=== PATIENT | male | born 1975 | race American Indian/Alaskan Native ===

== ENCOUNTER 2022-01-08 06:36 | Day surgery (SDC) | payer BC, OTHER ==
[2022-01-08] MEDS ORDERED: ASPIRIN EC 325 MG TAB PO NR (07:05)
[2022-01-08 07:27] LABS: Red Blood Count 4.65 M/mm3 (3.65-5.03); Red Cell Distribution Width 14.4 % (13.2-15.2)
[2022-01-08 07:38] LABS: BUN/Creatinine Ratio 8; Blood Urea Nitrogen 9 mg/dL (9-20); Calcium 9.4 mg/dL (8.4-10.2); Hemolysis Index 7
[2022-01-08 07:45] LABS: INR 0.85 (0.87-1.13)
[2022-01-08 07:53] LABS: Eosinophils % (Auto) 2.8 % (0.0-4.3); Hematocrit 42.1 % (35.5-45.6); Hemoglobin 13.9 gm/dl (11.8-15.2); Mean Corpuscular HGB Conc 33 % (32-34); Mean Corpuscular Volume 91 fl (84-94); Monocytes # (Auto) 0.4 K/mm3 (0.0-0.8); Monocytes % (Auto) 9.9 % (0.0-7.3); Platelet Count 158 K/mm3 (140-440)
[2022-01-08 08:02] LABS: Eosinophils # (Auto) 0.1 K/mm3 (0.0-0.4); Lymphocytes # (Auto) 1.4 K/mm3 (1.2-5.4); Lymphocytes % (Auto) 38.6 % (13.4-35.0)
[2022-01-08 08:03] LABS: Basophils % (Auto) 0.2 % (0.0-1.8)
[2022-01-08] MEDS ORDERED: VERAPAMIL 5 MG/2 ML INJ ONE (08:22)
[2022-01-08] MEDS ORDERED: HEPARIN 10,000 UNITS/10 ML VIAL ONE ×2 (08:22→09:23)
[2022-01-08] MEDS ORDERED: NITROGLYCERIN SYRINGE 0 ML ONE (08:23)
[2022-01-08] MEDS ORDERED: LIDOCAINE (1%) 10 MG/1 ML VIAL 20 ML MDV ONE (08:23)
[2022-01-08] MEDS: SODIUM CHLORIDE 0.9% 500 ML 500 ML IV SCH ×2 (08:34→09:00)
[2022-01-08] MEDS: MIDAZOLAM 2 MG/2 ML INJ ONE ×2 (09:09→09:25)
[2022-01-08] MEDS: fentaNYL 100 MCG/2 ML INJ ONE ×2 (09:10→09:25)
[2022-01-08] MEDS: HEPARIN/NS 5000 UNIT/500ML 1,000 ML IR ONE ×2 (09:10→10:09)
[2022-01-08] MEDS ORDERED: SODIUM CHLORIDE 0.9% 500 ML 500 ML ONE (09:35)
[2022-01-08] MEDS ORDERED: HEPARIN/NS 5000 UNIT/500ML 500 ML IR ONE (09:37)
[2022-01-08] MEDS ORDERED: ALUM-MAG HYDROXIDE-SIMETHICONE 200-200-20MG/5ML ORAL LIQD 30 ML ONE (09:48)
[2022-01-08] MEDS ORDERED: TICAGRELOR 90 MG TAB ONE (09:48)
--- NOTE | 2022-01-08 11:39 | Cardiac Catherization Report ---
DATE OF SERVICE: 01/08/2022 CARDIAC CATHETERIZATION AND CORONARY INTERVENTION REPORT INDICATIONS: The patient fraction is 46-year-old -Swiss gentleman with complaints of shortness of breath of few months' duration, getting worse with exertion. Was noted to have abnormal stress nuclear imaging consistent with ischemia in all 3 coronary vessel territories. Hence, scheduled for cardiac catheterization for definitive diagnosis and treatment. The patient is aware of the procedure, potential complications, and alternatives of therapy available. The patient is agreeable to proceed with coronary angiography and if indicated coronary intervention. DESCRIPTION OF PROCEDURE: The patient was brought to the catheterization laboratory in a fasting condition. The patient was prepared in standard fashion. The patient was evaluated for moderate sedation and received IV Versed and fentanyl starting at 9:09 a.m. Subsequently, local anesthesia was given in the right radial artery and radial access was obtained using 21-gauge arterial puncture needle. A 5-[place]izen [place] slender sheath was introduced. A 6-Citizen [place] multipurpose catheter was used to obtain the angiograms of the right coronary artery and left ventriculogram done in [place] and [place] projection. Subsequently, 6-[place]izen [place] JL3.5 diagnostic catheter was used to obtain the angiograms of the left coronary artery. Following findings were noted. HEMODYNAMICS: 1. Aortic pressure 125/79. Left ventricular pressure 122/23. No gradient across the aortic valve. Estimated ejection fraction 55%. 2. Left ventriculogram done in [place] projection showed normal-sized left ventricle with normal contractility. End-diastolic and end-systolic volumes were normal. Mitral regurgitation could not be evaluated because of limited amount of dye injected. End-diastolic pressure was noted to be 23 mmHg. 3. Right coronary artery dominant vessel arises normally from right coronary cusp. This shows very severe disease in the proximal part approaching more than 95% in addition to moderate disease in the mid to distal part. Mild diffuse disease noted elsewhere. On LCA injection, very faint collaterals were noted to the very distal RCA. 4. Left coronary artery arises normally from left coronary cusp. The left main is short without any significant disease. LAD curves around the apex. LAD and its branches show only very mild irregularities. Circumflex artery shows severe long diseased segment starting from proximal to distal part. This is a long lesion approaching 80%-90% in certain areas. SHAHRZAD 3 flow is noted. Collaterals are noted to the very distal RCA on LCA injection. FINAL IMPRESSION: Very severe proximal right coronary artery disease and moderate mid disease in addition to diffuse disease elsewhere and also severe disease in the circumflex artery, very long lesion. Distal vessel without significant disease. Left anterior descending without significant disease. Considering the above angiographic picture, with severity and size of the RCA, it was felt the patient would benefit from proceeding with intervention and procedure was converted to interventional procedure. CORONARY INTERVENTION OF THE RCA: The patient had indwelling 5-[place]izen [place] slender sheath in the right radial artery. The patient was given IV heparin as anticoagulant. Subsequently, JR4 guiding catheter was used to engage the right coronary artery. A 0.014 inch [place] XT guidewire was advanced into the distal RCA without difficulty. The lesion in the proximal RCA was dilated with 3.0 x 12 mm balloon with good result. However, significant residual stenosis noted. Intravascular ultrasound was prepared in a standard fashion and intravascular ultrasound of the right coronary artery was performed without difficulty. This showed the proximal vessel size to be 4.0 with mid vessel around 3.5 mm in size. Mid RCA also showed significant disease approaching 2 mm in diameter. Severe disease noted in the proximal RCA and also in addition diffuse disease was noted in between, which is moderate. A 3.0 x 12 mm Resolute [place] stent was advanced into the mid RCA and inflated to nominal pressure of 12 atmospheres with very good result. Subsequently, 4.0 x 18 mm Resolute [place] stent was advanced into the proximal RCA and dilated up to 12 atmospheres with very good result. Intravascular ultrasound postprocedure showed well opposed stents in both places. No dissection areas noted. Angiograms did not reveal any evidence of distal embolization. The patient tolerated the procedure well. No untoward complications were noted. SHAHRZAD 3 flow was noted pre and postprocedure. Final angiogram showed no complications with both lesions showing no evidence of proximal or distal dissection and step up was noted in both the lesions. FINAL IMPRESSION: Uncomplicated intravascular ultrasound guided intervention of the proximal right coronary artery and mid right coronary artery, with good result and no complications. The patient tolerated the procedure well. Therapeutic ACT was noted post procedure. The patient was given 180 mg of Brilinta, will be continued on 81 mg of aspirin. Will be given high intensity statin. The patient will be observed for the next 4-6 hours and if unremarkable, we will discharge him and consider staged intervention of the circumflex artery. Findings were explained to the patient and his . They understand. TID: [id number] RECEIPT: [id number] SOPHIE/LING SANDERSON
[2022-01-08] MEDS ORDERED: HYDROcodone/ACETAMINOPHEN 5-325 MG TAB PO PRN (11:58)
[2022-01-08] MEDS ORDERED: traMADol 50 MG TAB PO PRN (11:58)
--- NOTE | 2022-01-08 12:05 | Short Stay Summary ---
Short Stay Documentation Date of service: 01/08/22 - History H&P: obtained from office - Allergies and Medications Current Medications: Allergies No Known Allergies Allergy (Verified 01/08/22 07:03) Home Medications Medication Instructions Recorded Confirmed Last Taken Type Albuterol Sulfate [Proair 90 mcg IH Q6HR 01/08/22 01/08/22 01/07/22 History Respiclick] 2 puffs Aspirin [Aspirin BABY CHEW TAB] 81 mg PO QDAY 01/08/22 01/08/22 01/07/22 History 1 tab AtorvaSTATin [Lipitor] 20 mg PO DAILY 01/08/22 01/08/22 01/07/22 History 1 tab Cholecalciferol (Vitamin D3) 2,000 unit PO QDAY 01/08/22 01/08/22 01/07/22 History [Vitamin D3 2,000 UNIT CAP] 1 tab Colchicine [Colcrys] 0.6 mg PO DAILY 01/08/22 01/08/22 07/26/21 History 1 tab Cyclobenzaprine HCl [Flexeril 5 MG 5 mg PO BID 01/08/22 01/08/22 05/26/21 History TAB] 1 tab Esomeprazole Magnesium [Nexium 20 mg PO DAILY 01/08/22 01/08/22 01/07/22 History 24Hr] 1 tab Ticagrelor [Brilinta] 90 mg PO BID 30 Days #60 tablet 01/08/22 Unknown Rx Zolpidem (Nf) [Ambien (Nf)] 10 mg PO QHS 01/08/22 01/08/22 01/07/22 History 1 tab allopurinoL [Zyloprim] 100 mg PO QDAY 01/08/22 01/08/22 07/26/21 History 1 tab amLODIPine [Norvasc] 10 mg PO DAILY 01/08/22 01/08/22 01/07/22 History 1 tab lisinopriL [Lisinopril] 20 mg PO DAILY 01/08/22 01/08/22 01/07/22 History 1 tab traZODone [Desyrel] 100 mg PO QHS 01/08/22 01/08/22 01/07/22 History 1 tab Active Medications Hydrocodone Bitart/Acetaminophen (Hydrocodone/Acetaminophen 5-325 Mg Tab) 1 each PO Q4H PRN PRN Reason: Pain, Moderate (4-6) Sodium Chloride (Nacl 0.9% 500 Ml) 500 mls @ 50 mls/hr IV DIRECT GERALD Stop: 01/08/22 17:59 Last Admin: 01/08/22 09:00 Dose: 50 mls/hr Tramadol HCl (Tramadol 50 Mg Tab) 50 mg PO Q4H PRN PRN Reason: Pain, Mild (1-3) - Physical exam Integumentary: other (Dressing clean dry and intact with no bleeding. Patient had small hematoma at cardiac cath site that was expressed however patient is not in pain has normal cap refill and normal sensation in hand) - Brief post op/procedure progress note Date of procedure: 01/08/22 Pre-op diagnosis: Abnormal stress test Post-op diagnosis: other (Coronary artery disease) Anesthesia: local Estimated blood loss: minimal - Hospital course Hospital course: Patient presented for cardiac cath today. Patient found to have severe proximal RCA disease and moderate mid disease. In addition to diffuse disease elsewhere and also severe disease in circumflex artery. Patient underwent PCI of RCA. Patient tolerated procedure well. Patient to be discharged home with prescription for Brilinta and metoprolol. Patient will continue aspirin and statin therapy. Patient will be rescheduled for outpatient staged PCI. Discussed plan of care with patient. - Disposition Condition at discharge: Good Disposition: 01 HOME / SELF CARE / HOMELESS - Discharge Diagnoses (1) Coronary artery disease Status: Acute (2) Chronic kidney disease Status: Acute (3) Hypertension Status: Acute (4) Hyperlipidemia Status: Acute Short Stay Discharge Plan Activity: advance as tolerated Diet: low fat, low cholesterol, low salt Wound: keep clean and dry, per your surgeon's advice Follow up with: DIEGO MENDEZ MD [Primary Care Provider] - 7 Days MARC HENRY MD [Staff Physician] - 7 Days Forms: CardCat PCI D/C Instructions Prescriptions: Ticagrelor [Brilinta] 90 mg PO BID 30 Days #60 tablet AtorvaSTATin [Lipitor] 40 mg PO DAILY 30 Days #30 tab Metoprolol [Lopressor TAB] 12.5 mg PO BID 30 Days #60 tablet
[2022-01-08 16:05] VITALS: BP 136/93
--- NOTE | 2022-01-09 12:13 | Electrocardiograph Report ---
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
--- NOTE | 2022-01-09 12:18 | Electrocardiograph Report ---
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
== END 2022-01-08 17:00 | disposition home or self-care (01) ==
LOC: CATHLABREC 06:36
PROVIDERS: ATTEND Internal Medicine
DX: R06.02 Shortness of breath (principal); R94.39 Abnormal result of other cardiovascular function study; I25.10 Atherosclerotic heart disease of native coronary artery without angina pectoris; I12.9 Hypertensive chronic kidney disease with stage 1 through stage 4 chronic kidney disease, or unspecified chronic kidney disease; N18.9 Chronic kidney disease, unspecified; E78.5 Hyperlipidemia, unspecified; G47.33 Obstructive sleep apnea (adult) (pediatric); F41.9 Anxiety disorder, unspecified; R07.89 Other chest pain; N52.8 Other male erectile dysfunction; Z79.899 Other long term (current) drug therapy; Z79.82 Long term (current) use of aspirin; Z98.890 Other specified postprocedural states; Z83.3 Family history of diabetes mellitus; Z82.49 Family history of ischemic heart disease and other diseases of the circulatory system
CPT/HCPCS: 36415; 80048; 85025; 85610; 85730; 92978; 93005; 93458; 99156; 99157; C1725; C1753; C1769; C1874; C1887; C1894; C9600; J1644; J2250; J3010; J7040; 92928; J1815; Q9967

== ENCOUNTER 2022-01-10 06:46 | Day surgery (SDC) | payer BC, OTHER ==
[2022-01-10 07:44] LABS: Basophils % (Auto) 0.2 % (0.0-1.8); Eosinophils # (Auto) 0.1 K/mm3 (0.0-0.4); Eosinophils % (Auto) 1.9 % (0.0-4.3); Hematocrit 43.4 % (35.5-45.6); Hemoglobin 14.1 gm/dl (11.8-15.2); Lymphocytes # (Auto) 1.1 K/mm3 (1.2-5.4); Lymphocytes % (Auto) 22.3 % (13.4-35.0); Mean Corpuscular HGB Conc 33 % (32-34); Mean Corpuscular Volume 92 fl (84-94); Monocytes # (Auto) 0.5 K/mm3 (0.0-0.8); Monocytes % (Auto) 9.9 % (0.0-7.3); Platelet Count 165 K/mm3 (140-440); Red Blood Count 4.72 M/mm3 (3.65-5.03); Red Cell Distribution Width 14.4 % (13.2-15.2)
[2022-01-10 07:54] LABS: BUN/Creatinine Ratio 8; Blood Urea Nitrogen 9 mg/dL (9-20); Calcium 9.7 mg/dL (8.4-10.2); Hemolysis Index 5
[2022-01-10 07:56] LABS: INR 0.84 (0.87-1.13)
[2022-01-10] MEDS ORDERED: HEPARIN/NS 5000 UNIT/500ML 1,000 ML IR ONE (08:01)
[2022-01-10] MEDS ORDERED: LIDOCAINE (1%) 10 MG/1 ML VIAL 20 ML MDV ONE (08:02)
[2022-01-10] MEDS ORDERED: NITROGLYCERIN SYRINGE 3 ML ONE (08:02)
[2022-01-10] MEDS ORDERED: VERAPAMIL 5 MG/2 ML INJ ONE (08:02)
[2022-01-10] MEDS: SODIUM CHLORIDE 0.9% 500 ML 500 ML IV SCH ×2 (08:16→09:00)
[2022-01-10] MEDS ORDERED: HEPARIN/NS 5000 UNIT/500ML 500 ML IR ONE (08:38)
[2022-01-10] MEDS: MIDAZOLAM 2 MG/2 ML INJ ONE ×2 (09:05→09:16)
[2022-01-10] MEDS: fentaNYL 100 MCG/2 ML INJ ONE ×2 (09:06→09:15)
[2022-01-10] MEDS: HEPARIN 10,000 UNITS/10 ML VIAL ONE ×2 (09:14→09:17)
[2022-01-10] MEDS ORDERED: HYDROcodone/ACETAMINOPHEN 5-325 MG TAB PO SCH (10:30)
--- NOTE | 2022-01-10 10:30 | Cardiac Catherization Report ---
DATE OF SERVICE: 01/10/2022 INDICATIONS: The patient is a 46-year-old gentleman with history of hypertension, diabetes mellitus, obstructive sleep apnea, was noted to have grossly abnormal nuclear imaging and subsequently underwent coronary angiography, which showed severe disease in the RCA along with circumflex artery. He underwent intervention of the RCA a few days ago and presently brought back for staged intervention of the long lesion in the circumflex artery. The patient is aware of the procedure, potential complications, and alternatives of therapy available. The patient is already taking aspirin 81 mg and Brilinta in addition to atorvastatin. DESCRIPTION OF PROCEDURE: Informed consent was obtained and the patient was brought to the catheterization laboratory in a fasting condition. patient was evaluated for moderate sedation and was felt to be an appropriate candidate for moderate sedation. Received IV Versed and fentanyl starting at 9:12 a.m. Continuously monitored with pulse oximetry, hemodynamic and EKG monitoring. The patient was prepared in a standard fashion, sterile drapes were applied, local anesthesia was given in the right wrist area followed by accessing the right radial artery using 21-gauge arterial puncture needle. A 5-[place] slender sheath was used. The patient received 5 mg of intra-arterial verapamil and 3000 units of intravenous heparin. Using diagnostic right coronary JR4 catheter, angiograms of the right coronary artery were obtained and it showed widely patent stents in the proximal and mid RCA. Subsequently, patient was given extra dose of IV heparin 70 units per kg. A 6 [place] EBU 3.5 guiding catheter was advanced and engaged the left coronary artery. A 0.014 inch [place] XT guidewire was advanced into the distal circumflex artery without difficulty. The lesion was dilated with 2.5 x 15 mm balloon on multiple times with a good result. An intravascular ultrasound was set up and subsequently diameter of the distal vessel and a diseased vessel in the proximal part were measured. Distal vessel size is 2.75-2.9 mm in diameter. The proximal vessel is a 3.5-4 mm in diameter. Considering this, a 2.75 x 26 mm [place] stent was advanced into the distal part of the circumflex artery, which includes extending into the mid part, dilated up to 14 atmospheres with good result. Subsequently, 3.0 x 26 mm Resolute [place] stent was inserted in the mid to proximal part and inflated up to 16 atmospheres with good result. Final IVUS showed very good apposition throughout the stented area. No areas of dissection or thrombus noted. The patient tolerated the procedure well with no complaints of chest pain or EKG changes. Hemodynamically stable. The patient was monitored throughout the procedure and moderate sedation monitoring ended at 10:01 a.m. The patient was hemodynamically stable at the end of procedure, the patient is communicating normally, breathing normally with no focal deficits. Radial band will be applied for hemostasis. The patient's ACT post-procedure was 276 seconds. The patient is already on Brilinta and he will be continued on the same. FINAL IMPRESSION: Successful, uncomplicated IVUS guided drug-eluting stent placement of the proximal to distal circumflex artery with patent stents in the proximal and mid RCA. No complications noted. TID: [id number] RECEIPT: [id number] SOPHIE/BIBI SANDERSON
[2022-01-10] MEDS ORDERED: traMADol 50 MG TAB PO PRN (11:25)
[2022-01-10] MEDS ORDERED: HYDROcodone/ACETAMINOPHEN 5-325 MG TAB PO PRN (11:25)
--- NOTE | 2022-01-10 11:48 | Electrocardiograph Report ---
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
--- NOTE | 2022-01-10 14:39 | Short Stay Summary ---
Short Stay Documentation Date of service: 01/10/22 - History H&P: obtained from office - Allergies and Medications Current Medications: Allergies No Known Allergies Allergy (Verified 01/08/22 07:03) Home Medications Medication Instructions Recorded Confirmed Last Taken Type Albuterol Sulfate [Proair 90 mcg IH Q6HR 01/08/22 01/10/22 01/07/22 History Respiclick] 2 puffs Aspirin [Aspirin BABY CHEW TAB] 81 mg PO QDAY 01/08/22 01/10/22 01/09/22 History 81 mg AtorvaSTATin [Lipitor] 40 mg PO DAILY 30 Days #30 tab 01/08/22 01/10/22 01/09/22 Rx 40 mg Cholecalciferol (Vitamin D3) 2,000 unit PO QDAY 01/08/22 01/10/22 01/09/22 History [Vitamin D3 2,000 UNIT CAP] 2000 units Colchicine [Colcrys] 0.6 mg PO DAILY 01/08/22 01/10/22 12/03/21 History 0.6mg Cyclobenzaprine HCl [Flexeril 5 MG 5 mg PO BID 01/08/22 01/10/22 08/27/21 History TAB] 5 mg Esomeprazole Magnesium [Nexium 20 mg PO DAILY 01/08/22 01/10/22 01/07/22 History 24Hr] 1 tab Metoprolol [Lopressor TAB] 12.5 mg PO BID 30 Days #60 tablet 01/08/22 01/10/22 01/09/22 Rx 12.5mg Ticagrelor [Brilinta] 90 mg PO BID 30 Days #60 tablet 01/08/22 01/10/22 01/10/22 07:44 Rx 90 mg Zolpidem (Nf) [Ambien (Nf)] 10 mg PO QHS 01/08/22 01/10/22 01/09/22 History 10 mg allopurinoL [Zyloprim] 100 mg PO PRN PRN 01/08/22 01/10/22 11/24/21 History 100 mg amLODIPine 10 mg PO DAILY 01/08/22 01/10/22 01/09/22 History 10 mg lisinopriL [Lisinopril] 20 mg PO DAILY 01/08/22 01/10/22 01/09/22 History mg traZODone [Desyrel] 100 mg PO QHS 01/08/22 01/10/22 01/09/22 History 100 mg Active Medications Hydrocodone Bitart/Acetaminophen (Hydrocodone/Acetaminophen 5-325 Mg Tab) 1 each PO ONCE@1030 GERALD Stop: 01/10/22 15:00 Last Admin: 01/10/22 10:30 Dose: 1 each Hydrocodone Bitart/Acetaminophen (Hydrocodone/Acetaminophen 5-325 Mg Tab) 1 each PO Q4H PRN PRN Reason: Pain, Moderate (4-6) Sodium Chloride (Nacl 0.9% 500 Ml) 500 mls @ 50 mls/hr IV DIRECT GERALD Stop: 01/10/22 17:59 Last Admin: 01/10/22 09:00 Dose: 50 mls/hr Tramadol HCl (Tramadol 50 Mg Tab) 50 mg PO Q4H PRN PRN Reason: Pain, Mild (1-3) - Physical exam Integumentary: other (Dressing clean dry and intact with no signs of bleeding or hematoma) - Brief post op/procedure progress note Date of procedure: 01/10/22 Pre-op diagnosis: Coronary artery disease Post-op diagnosis: same Estimated blood loss: minimal - Hospital course Hospital course: Patient presents today for staged PCI. Patient tolerated procedure well with no complications. Patient had staged PCI of distal circumflex who. Patient to be discharged home and follow-up as an outpatient - Disposition Condition at discharge: Good Disposition: 01 HOME / SELF CARE / HOMELESS - Discharge Diagnoses (1) Chronic kidney disease Status: Acute (2) Coronary artery disease Status: Acute (3) Hyperlipidemia Status: Acute (4) Hypertension Status: Acute Short Stay Discharge Plan Activity: advance as tolerated Diet: low fat, low cholesterol, low salt Wound: keep clean and dry, per your surgeon's advice Follow up with: DIEGO MENDEZ MD [Primary Care Provider] - 7 Days MARC HENRY MD [Staff Physician] - 7 Days
[2022-01-10 15:17] VITALS: BP 140/89
--- NOTE | 2022-01-12 09:32 | Electrocardiograph Report ---
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 Compared to ECG 01/10/2022 07:54:02 No significant changes Electronically Signed On 01-12-2022 9:31:51 EDT by Dangelo Post
== END 2022-01-10 16:00 | disposition home or self-care (01) ==
LOC: CATHLABREC 06:46
PROVIDERS: ATTEND Internal Medicine
DX: R94.39 Abnormal result of other cardiovascular function study (principal); R06.02 Shortness of breath; I25.10 Atherosclerotic heart disease of native coronary artery without angina pectoris; I12.9 Hypertensive chronic kidney disease with stage 1 through stage 4 chronic kidney disease, or unspecified chronic kidney disease; E11.22 Type 2 diabetes mellitus with diabetic chronic kidney disease; N18.9 Chronic kidney disease, unspecified; G47.33 Obstructive sleep apnea (adult) (pediatric); E78.5 Hyperlipidemia, unspecified; Z79.899 Other long term (current) drug therapy; Z79.82 Long term (current) use of aspirin; Z98.890 Other specified postprocedural states
CPT/HCPCS: 36415; 80048; 85025; 85610; 85730; 92978; 93005; 99156; 99175; C1725; C1753; C1769; C1874; C1887; C1894; C9600; J1644; J1815; J2250; J3010; J7040; 92928; Q9967